=== PATIENT | male | born 1960 | race Caucasian/White ===

== ENCOUNTER 2017-02-27 09:23 | Day surgery (SDC) | payer OTHER ==
[~2017-02-27] VITALS: Ht 177.8 cm; Wt 86.5 kg
[~2017-02-27 09:23] MED LIST: 0.9% Sodium Chloride 1,000 ML IV SCH; ALBU18HF INH; CETI5TAB28 PO; FLUT16SP NS; Sodium Chloride LOK Flush 10 mL Syringe IV PRN; fentaNYL-PF 50 mCg/mL 2 mL Inj IVPUSH PRN
[2017-02-27 09:48] VITALS: BP 136/88; PULSE 59; RESP 16; O2SAT 99
[2017-02-27] MEDS: 0.9% Sodium Chloride 1,000 ML IV SCH ×2 (10:39→10:48)
[2017-02-27 11:00] VITALS: BP 119/78; PULSE 59; RESP 16; O2SAT 95
[2017-02-27 11:10] VITALS: BP 134/92; PULSE 64; RESP 16; O2SAT 99
--- NOTE | 2017-02-27 13:20 | ENDO ---
[address] [address] ENDOSCOPY PROCEDURE PATIENT: TEDDY CARRION : 1960 MR#: [id number] ADMIT: 02/27/2017 JOB ID: [id number] DATE: 02/27/2017 PROCEDURE: Colonoscopy. INDICATION: Screening. ANESTHESIA: Patient's ASA classification is one. Mallampati score is two. MEDICATIONS: Versed 5 mg, fentanyl 100 mcg. INSTRUMENT USED: PCF H 180 AL PREPARATION QUALITY: Good. PROCEDURE DETAILS: After informed consent was obtained, the patient was brought into the GI suite, where he was placed on oxygen via nasal cannula and monitored with continuous pulse oximeter, telemetry, and blood pressure monitoring. A time-out was performed, then he was placed in the left lateral decubitus position and medications were administered for sedation. Digital rectal exam was performed, which was unremarkable. The colonoscope was then inserted into the rectum and advanced under direct visualization to the cecum, which was identified by the presence of the ileocecal valve and the appendiceal orifice. Once the cecum was reached, the colonoscope was withdrawn back into the rectum as the mucosa and lumen were examined. In the rectum, retroflexion was performed. Following retroflexion the remaining air in the rectum was suctioned and the procedure was completed. FINDINGS: 1. In the ascending colon, just distal to the ileocecal valve, there was an approximately 4 mm sessile polyp that was removed with a cold snare. 2. The remainder of colon exam was otherwise unremarkable. IMPRESSION: Ascending colon polyp. RECOMMENDATIONS: Repeat colonoscopy in five years, sooner if symptoms should dictate. COMPLICATIONS: None. ESTIMATED BLOOD LOSS: Less than 5 mL.
--- NOTE | 2017-03-04 11:23 | PATH ---
SURGICAL PATHOLOGY Attending Physician:Kole Campos CASE STATUS: Signed Out PATIENT NAME: TEDDY CARRION PID: [id number] : 1960 DATE COLLECTED:02/27/2017 20:36 SPECIMEN: Colon, Polyp CLINICAL HISTORY: 1). ASCENDING COLON POLYP FINAL DIAGNOSIS: Polyp, Ascending Colon: Polypoid-shaped fragment of colon mucosa associated with very prominent lymphoid hyperplasia within submucosa and mucosa. Negative for dysplasia and malignancy. ICD10: K63.5 GROSS DESCRIPTION: The specimen is received in one formalin filled container labeled with the patient's name, sublabeled "ascending colon polyp" and consists of a 0.5 x 0.5 x 0.4 CM portion of tissue which is entirely submitted in one cassette. 02/27/2017 [facility] ICD-9 CODES: CPT CODES: 1: 22580 Electronically Signed Out Jose Daniel Grijalva MD [facility] Pathology [facility] [address] [place] [address] Technical component performed at [facility], [address] [place] [address] Ave[address], [address]
== END 2017-02-27 23:59 | disposition home or self-care (01) ==
LOC: END 09:23
PROVIDERS: ATTEND Internal Medicine Gastroenterology
DX: Z12.11 Encounter for screening for malignant neoplasm of colon (principal); K63.5 Polyp of colon; Z83.71 Family history of colonic polyps; J45.909 Unspecified asthma, uncomplicated; Z79.51 Long term (current) use of inhaled steroids
CPT/HCPCS: 45385; G0500; J2250; J3010; J7030